=== PATIENT | female | born 1940 | race Two or more races ===

== ENCOUNTER 2023-07-22 07:12 | Day surgery (SDC) | payer OTHER ==
[2023-07-22] MEDS ORDERED: DIPHENHYDRAMINE HCL 50 MG/ML VIAL 1ML IV ONE (13:00)
[2023-07-22] MEDS ORDERED: MIDAZOLAM HCL 2 MG/2 ML VIAL IV ONE (13:00)
[2023-07-22] MEDS ORDERED: fentaNYL CITRATE 50 MCG/ML AMPUL IV PUSH ONE (13:00)
== END 2023-07-22 12:05 | disposition home or self-care (01) ==
LOC: AMB-ENDOS 07:12
PROVIDERS: ATTEND Surgery
DX: K63.5 Polyp of colon (principal); D12.3 Benign neoplasm of transverse colon; K57.30 Diverticulosis of large intestine without perforation or abscess without bleeding